=== PATIENT | female | born 1935 ===

== ENCOUNTER → 2017-06-13 | Emergency (ER) | payer OTHER ==
[~2017-06-13] VITALS: Ht 162.6 cm; Wt 99.8 kg
[~2017-06-13] MED LIST: ACYCLOVIR800 MG PO; ATACAND32 MG; COREG CR10 MG; PLAVIX75 MG; SYNTHROID125 MCG; ZOCOR20 MG
== END | disposition home or self-care (01) ==
LOC: ER 11:14
DX: B02.9 Zoster without complications (principal)

== ENCOUNTER 2018-09-03 13:47 | Inpatient (IN) | payer OTHER ==
[~2018-09-03] VITALS: Ht 157.5 cm; Wt 99.8 kg
--- NOTE | 2018-09-03 13:59 | NUR ---
PACIENTE ALERTA Y ORIENTADA POR ART ESFERAS QUIEN REFIERE CELULITIS EN PIE LT. SE OBSERVA PIERNA INFLAMADA Y ENROJECIDA. PACIENTE SE OBSERVA CON HEMATOMA EN LA PATIENCE Y "CHICHON" EN LADO LT DE LA FRENTE POR CAIDA EN LA CASA.
--- NOTE | 2018-09-03 15:49 | NUR ---
SE EDUCA A PTE SOBRE TX EMDICO ESTA REFIERE ENTENDER. SE PAU NMUESTRAS DE LABORATORIO UTILIZANDO MEDIDAS ASEPTICAS. SE COLOCA H/L A PTE EL CUAL SE ENCUENTRA PATNETE SANTY DE EDEMA Y ENROJECIMIENTO. SE NOTIFICA ESTUDIO DE PLACA PENDIENTE A REALIZAR. PROCEDIMIENTOS REALIZADOS POR Ellie MARCUM.
--- NOTE | 2018-09-04 00:30 | NUR ---
SE RECIBE PTE DORMIDA EN GEOVANNY CON BARANDAS ELEVADAS EN COMPANIA DE FAMILIAR. SE RECIBE PTE CANALIZADA AREA SANTY DE EDEMA Y DE ENROJECIMIENTO. PTE ESPERA DE DOPPLER IN AM.
--- NOTE | 2018-09-04 07:39 | NUR ---
SE RECIBE DE TURNO ANTERIOR. PACIENTE FEMENINA. ALERTA Y ORIENTADA EN ART ESFERAS. SE OBSERVA CON BUEN PATRON RESPIRATORIO. PIEL TIBIA AL TACTO. CANALIZACION PATENTE, SANTY DE EDEMA Y/O ENROJECIMIENTO RECIBIENDO 0.9%NSS @166 ML/HR. PACIENTE EN ESPERA DE ESTUDIO EN LA MANANA (DUPLEX).
--- NOTE | 2018-09-04 10:10 | NUR ---
SE INICIA CANALIZACION EN BRAZO RT CON MEDIDAS ASEPTICAS Y SE KENYA TUBOS PILOTOS PARA 2 UNIDADES DE PRBC'S FRACCIONADAS.
--- NOTE | 2018-09-04 10:25 | NUR ---
SE LE ENTREGA A MS. PEOPLES TUBOS PILOTOS PARA 2 UNIDADES FRACCIONADAS.
--- NOTE | 2018-09-04 16:15 | NUR ---
PTE ALERTA Y ORIENTADA X3 ESFERAS,EN GEOVANNY CON BARANDAS ELEVADAS,EN COMPANIA DE FAMILIAR.AREA DE VENOPUNCION PATENTE Y SANTY DE EDEMA.PTE CON 2 UNIDADES DE PRBC FRACC PENDIENTES NO DISPONIBLES.PENDIENTE A EVALUACION DE DR Noman MURPHY.
[2018-09-10] MEDS ORDERED: NEURONTIN300 MG PO (13:29)
[2018-09-10] MEDS ORDERED: LEVOFLOXAC500 MG/100 IV (13:31)
[2018-09-10] MEDS ORDERED: ZYVOX 600 MG/300 ML IV (13:34)
[2018-09-10] MEDS ORDERED: NeurRONTin 100mg cap PO (13:34)
[2018-09-10] MEDS ORDERED: Xopenex 1.25 MG/3 ML IH (13:34)
== END 2018-09-15 16:40 | disposition home or self-care (01) | DRG 305 ==
LOC: ER 13:47 → MEDJ 09-04 17:24
PROVIDERS: ADMIT Internal Medicine
PROC: 30233N1 Transfusion of Nonautologous Red Blood Cells into Peripheral Vein, Percutaneous Approach (ICD-10-PCS; principal; 2018-09-04)
PROC: 4A033R1 Measurement of Arterial Saturation, Peripheral, Percutaneous Approach (ICD-10-PCS; 2018-09-06)
PROC: 3E0F7GC Introduction of Other Therapeutic Substance into Respiratory Tract, Via Natural or Artificial Opening (ICD-10-PCS; 2018-09-06)
PROC: BB24ZZZ Computerized Tomography (CT Scan) of Bilateral Lungs (ICD-10-PCS; 2018-09-06)
PROC: BW21ZZZ Computerized Tomography (CT Scan) of Abdomen and Pelvis (ICD-10-PCS; 2018-09-06)
DX: I13.10 Hypertensive heart and chronic kidney disease without heart failure, with stage 1 through stage 4 chronic kidney disease, or unspecified chronic kidney disease (principal); L03.116 Cellulitis of left lower limb; N17.8 Other acute kidney failure; J98.11 Atelectasis; E78.00 Pure hypercholesterolemia, unspecified; E03.8 Other specified hypothyroidism; N18.9 Chronic kidney disease, unspecified; M10.39 Gout due to renal impairment, multiple sites; B02.9 Zoster without complications; E66.01 Morbid (severe) obesity due to excess calories; R09.02 Hypoxemia; G47.33 Obstructive sleep apnea (adult) (pediatric); D63.1 Anemia in chronic kidney disease; J45.909 Unspecified asthma, uncomplicated; S00.83XA Contusion of other part of head, initial encounter; S80.12XA Contusion of left lower leg, initial encounter; S40.022A Contusion of left upper arm, initial encounter

== ENCOUNTER 2020-03-11 11:20 | Emergency (ER) | payer OTHER ==
[~2020-03-11] VITALS: Ht 157.5 cm; Wt 96.2 kg
[~2020-03-11 11:20] MED LIST changes: +LEVOFLOXAC500 MG/100 IV; +NEURONTIN300 MG PO; +NeurRONTin 100mg cap PO; +Xopenex 1.25 MG/3 ML IH; +ZYVOX 600 MG/300 ML IV
== END 2020-03-11 14:19 | disposition home or self-care (01) ==
LOC: ER 11:20
DX: M77.8 Other enthesopathies, not elsewhere classified (principal); M10.032 Idiopathic gout, left wrist; N28.9 Disorder of kidney and ureter, unspecified